=== PATIENT | female | born 1995 | race Caucasian/White ===

== ENCOUNTER 2022-02-26 04:41 | Emergency (ER) | payer OTHER ==
[~2022-02-26] VITALS: Ht 160 cm; Wt 74.8 kg
[2022-02-26 04:44] VITALS: BP 132/78
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
--- NOTE | 2022-02-26 04:59 | NUR ---
Dr. Culp at chair B to exam patient.
[2022-02-26 05:22] VITALS: BP 132/78
--- NOTE | 2022-02-26 05:22 | NUR ---
Patient D/C to custody.
== END 2022-02-26 05:22 ==
LOC: MED 04:41
DX: Z02.89 Encounter for other administrative examinations (principal); V89.2XXA Person injured in unspecified motor-vehicle accident, traffic, initial encounter; Y93.89 Activity, other specified; Y92.89 Other specified places as the place of occurrence of the external cause; Y99.8 Other external cause status
CPT/HCPCS: 99283